=== PATIENT | female | born 1955 | race Caucasian/White ===

== ENCOUNTER 2017-02-22 05:53 | Emergency (ER) | payer OTHER ==
[~2017-02-22] VITALS: Ht 160 cm; Wt 58.1 kg
[2017-02-22] MEDS ORDERED: CALCIUM500 MG PO (06:06)
[2017-02-22] MEDS ORDERED: IRON325 M1 PO (06:06)
[2017-02-22] MEDS ORDERED: PAROXETINE HCL20 MG PO (06:06)
[2017-02-22] MEDS ORDERED: PENICILLIN V P500 MG PO (06:49)
== END 2017-02-22 07:06 | disposition home or self-care (01) ==
LOC: ED 05:53
DX: S02.5XXA Fracture of tooth (traumatic), initial encounter for closed fracture (principal); S01.511A Laceration without foreign body of lip, initial encounter; S16.1XXA Strain of muscle, fascia and tendon at neck level, initial encounter; S00.31XA Abrasion of nose, initial encounter; F32.9 Major depressive disorder, single episode, unspecified; Z79.01 Long term (current) use of anticoagulants; Z79.899 Other long term (current) drug therapy; W18.09XA Striking against other object with subsequent fall, initial encounter
CPT/HCPCS: 72040; 99283

== ENCOUNTER 2018-04-18 12:57 | Emergency (ER) | payer OTHER ==
[~2018-04-18] VITALS: Ht 160 cm; Wt 58.1 kg
[~2018-04-18 12:57] MED LIST: CALCIUM500 MG PO; IRON325 M1 PO; PAROXETINE HCL20 MG PO; PENICILLIN V P500 MG PO
--- OUTSIDE RECORDS SUMMARY | 2018-04-18 14:41 | XMS | Clinical Summary ---
Demographics + + + | Address | [address] | | | [place] [address] | + + + | Home Phone | | + + + | Preferred Language | Unknown | + + + | Marital Status | | + + + | Zoroastrianism Affiliation | 1027 | + + + | Race | Unknown | + + + | Ethnic Group | Unknown | + + + Author + + + | Author | [facility] | | | and [place] | + + + | Organization | [facility] | | | and [place] | + + + | Address | Unknown | + + + | Phone | Unavailable | + + + Support + + + + + | Name | Relationship | Address | Phone | + + + + + | Jony Andrew | ECON | [address] | | | | | [place] | | | | | [phone] | | + + + + + Care Team Providers + +------+ + | Care Cryogenics Repairer Name | Role | Phone | + +------+ + | Deonte Schafer DO | PP | | + +------+ + Allergies + + + + + + | Active Allergy | Reactions | Severity | Noted | Comments | | | | | Date | | + + + + + + | Diphenhydramine | Itching, Nausea And | | 05/20 | Itching | | | Vomiting | | 16 | | + + + + + + Current Medications + + +-------+---------+------+------+-------+ | Prescription | Sig. | Disp. | Refills | Star | End | Statu | | | | | | t | Date | s | | | | | | Date | | | + + +-------+---------+------+------+-------+ | PARoxetine (PAXIL) | Take 10 mg by mouth | | | | | Activ | | 10 mg tablet | every morning. | | | | | e | + + +-------+---------+------+------+-------+ | progesterone | Take 100 mg by mouth | | | | | Activ | | (PROMETRIUM) 100 mg | Daily. | | | | | e | | capsule | | | | | | | + + +-------+---------+------+------+-------+ | estradiol | Take 0.5 mg by mouth | | | | | Activ | | (ESTRACE) 0.5 mg | Daily. | | | | | e | | tablet | | | | | | | + + +-------+---------+------+------+-------+ | FERROUS | Take by mouth | | | | | Activ | | SULFATE-VITAMIN C PO | Daily. | | | | | e | + + +-------+---------+------+------+-------+ | CALCIUM-VITAMIN D | Take by mouth. | | | | | Activ | | PO | | | | | | e | + + +-------+---------+------+------+-------+ | Multiple Vitamin | Take by mouth. | | | | | Activ | | (THERAGRAN PO) | | | | | | e | + + +-------+---------+------+------+-------+ | UNABLE TO FIND | 4 g Daily. Med Name: | | | | | Activ | | | Tia; has | | | | | e | | | protein, | | | | | | | | magnesium,and | | | | | | | | potassium | | | | | | + + +-------+---------+------+------+-------+ Active Problems + + + | Problem | Noted Date | + + + | Spondylolisthesis, lumbar region | 11/05/2015 | + + + | Lumbar spinal stenosis | 11/05/2015 | + + + | Lumbar radiculopathy | 11/05/2015 | + + + | Low back pain | 11/05/2015 | + + + | Sciatica | | + + + | Trochanteric bursitis, left hip | | + + + | Patellar tendonitis | | + + + | Prepatellar bursitis | | + + + | Scoliosis of lumbar spine | | + + + | Nonallopathic lesion of cervical region | | + + + | Nonallopathic lesion of thoracic region | | + + + | Concussion | | + + + | Thoracic back sprain | | + + + | Neck sprain | | + + + | Iliofemoral (ligament) sprain | | + + + | Rotator cuff sprain | | + + + | Headache | | + + + Family History + + +------+ + | Medical History | Relation | Name | Comments | + + +------+ + | Alcohol abuse | Brother | | | + + +------+ + | Arthritis | Brother | | | + + +------+ + | Cancer | Brother | | | + + +------+ + | Hypertension | Brother | | | + + +------+ + | Allergies | Daughter | | | + + +------+ + | Obesity | Daughter | | | + + +------+ + | Arthritis | Father | | | + + +------+ + | Heart attack | Father | | | + + +------+ + | Heart disease | Father | | CHRONIC ISCHEMIC | + + +------+ + | Ulcer Disease | Father | | | + + +------+ + | Osteoporosis | Maternal | | | | | Aunt | | | + + +------+ + | Heart attack | Maternal | | | | | Grandfath | | | | | er | | | + + +------+ + | Heart disease | Maternal | | | | | Grandfath | | | | | er | | | + + +------+ + | Diabetes | Maternal | | | | | Grandmoth | | | | | er | | | + + +------+ + | Obesity | Maternal | | | | | Grandmoth | | | | | er | | | + + +------+ + | Stroke | Maternal | | | | | Grandmoth | | | | | er | | | + + +------+ + | Kidney disease | Mother | | removal | + + +------+ + | Other (see comment) | Mother | | bowel blockage | + + +------+ + | Diabetes | Paternal | | | | | Aunt | | | + + +------+ + | Alcohol abuse | Paternal | | | | | Uncle | | | + + +------+ + | Cancer | Sister | | | + + +------+ + | Diabetes | Sister | | | + + +------+ + | Obesity | Sister | | | + + +------+ + + +------+ + + | Relation | Name | Status | Comments | + +------+ + + | Brother | | | | | | | (Age | | | | | 50) | | + +------+ + + | Brother | | | | + +------+ + + | Child | | Alive | | + +------+ + + | Child | | Alive | | + +------+ + + | Child | | Alive | | + +------+ + + | Daughter | | Alive | | + +------+ + + | Daughter | | | | + +------+ + + | Father | | | | | | | (Age | | | | | 67) | | + +------+ + + | Maternal Aunt | | Alive | | + +------+ + + | Maternal Aunt | | | | + +------+ + + | Maternal Grandfather | | | [place] | | | | (Age | | | | | 56) | | + +------+ + + | Maternal Grandmother | | | STROKE | | | | (Age | | | | | 72) | | + +------+ + + | Mother | | | bowel blockage | | | | (Age | | | | | 49) | | + +------+ + + | Paternal Aunt | | Alive | | + +------+ + + | Paternal Aunt | | | | + +------+ + + | Paternal Grandmother | | | natural causes | | | | (Age | | | | | 83) | | + +------+ + + | Paternal Uncle | | Other | UNKNOWN | + +------+ + + | Paternal Uncle | | | | + +------+ + + | Sister | | | | | | | (Age | | | | | 59) | | + +------+ + + | Sister | | | | + +------+ + + Social History + +-------+ +--------+------+ | Tobacco Use | Types | Packs/Day | Years | Date | | | | | Used | | + +-------+ +--------+------+ | Never Smoker | | | | | + +-------+ +--------+------+ + +---+---+---+ | Smokeless Tobacco: | | | | | Never Used | | | | + +---+---+---+ + + +---------+ + | Alcohol Use | Drinks/We | oz/Week | Comments | | | ek | | | + + +---------+ + | No | 0 | 0.0 | | | | Standard | | | | | drinks or | | | | | | | | | | equivalen | | | | | t | | | + + +---------+ + + + + | Sex Assigned at | Date Recorded | | | | + + + | Not on file | | + + + Last Filed Vital Signs + + + + | Vital Sign | Reading | Time Taken | + + + + | Blood Pressure | 105/62 | 09/29/20161456 PST | + + + + | Pulse | 70 | 09/29/20161456 PST | + + + + | Temperature | 36 C (96.8 F) | 06/26/2016799 PST | + + + + | Respiratory Rate | 18 | 06/26/2016927 PST | + + + + | Oxygen Saturation | 100% | 06/26/2016927 PST | + + + + | Inhaled Oxygen | - | - | | Concentration | | | + + + + | Weight | 58.7 kg (129 lb 6.4 | 09/29/20161456 PST | | | oz) | | + + + + | Height | 167.6 cm (5' 6") | 09/29/20161456 PST | + + + + | Body Mass Index | 20.89 | 09/29/20161456 PST | + + + + Plan of Treatment + + + + + | Health Maintenance | Due Date | Last Done | Comments | + + + + + | Hepatitis C | | | | | Screening | 6 | | | + + + + + | Vaccine: | | | | | Dtap/Tdap/Td (1 - | 5 | | | | Tdap) | | | | + + + + + | Cervical Cancer | | | | | Screening (Pap) | 6 | | | + + + + + | BREAST CANCER | | | | | SCREENING (MAMM Q2 | 6 | | | | YEARS 50-74) | | | | + + + + + | Colorectal Cancer | | | | | Screening | 6 | | | | (Colonoscopy) | | | | + + + + + | Vaccine: Zoster (1 | | | | | of 2) | 6 | | | + + + + + | Vaccine: Influenza | | | | | (#1) | 8 | | | + + + + + Implants + +--------+--------+ +--------+--------+--------+ | Implanted | Type | Area | Manufacture | Device | Expira | Model | | | | | r | | tion | / | | | | | | Identi | Date | Serial | | | | | | fier | | / Lot | + +--------+--------+ +--------+--------+--------+ | Bone Chips 15cc - | Bone | Left: | RTI | | 05/06/ | [id number] | | [id number]: Qty: 1 | | Spine | BIOLOGICS | | 2020 | | | on 11/18/2015 by [facility], | | Lumbar | INC - RBIO | | | /[id number] | | Live Bland DO | | | | | | 9-021 | | | | | | | | / | + +--------+--------+ +--------+--------+--------+ | Imp Spn Spcr 26x8mm - | Generi | Left: | MED[employer] - | | 06/11/ | 155342 | | [id number]: Qty: 1 on | c | Spine | MEDT | | 2022 | 8 / | | 11/18/2015 by Live Hamm | | Lumbar | | | | /[id number] | | DO Baldo | | | | | | 502 | + +--------+--------+ +--------+--------+--------+ | Lauro Perc Str Ccm-Pls [id number] | Generi | Left: | MEDTRONIC - | | | 373430 | | - [id number]: Qty: 1 | c | Spine | MEDT | | | 6160 / | | on 11/18/2015 by [facility], | | Lumbar | | | | / | | Live Bland DO | | | | | | | + +--------+--------+ +--------+--------+--------+ | Imp Spn Lauro Str [id number] - | Generi | Left: | SOFAMOR | | | [id number] | | [id number]: Qty: 1 on | c | Spine | DANEK - DIV | | | 6150 / | | 11/18/2015 by Live Hamm | | Lumbar | [employer]TR[employer]IC | | | / | | DO Baldo | | | - SFDK | | | | + +--------+--------+ +--------+--------+--------+ | Cage Peek Xlct4 10d [id number] | Generi | Left: | NUVASIVE - | | | 453853 | | - [id number]: Qty: 1 | c | Spine | NVSV | | | 0 / / | | on 11/18/2015 by [facility], | | Lumbar | | | | | | Live Bland DO | | | | | | | + +--------+--------+ +--------+--------+--------+ | Cage Xl Wide 10deg [id number] - | Generi | Left: | NUVASIVE - | | | 754699 | | [id number]: Qty: 3 on | c | Spine | NVSV | | | 0 / / | | 11/18/2015 by Live Hamm | | Lumbar | | | | | | DO Baldo | | | | | | | + +--------+--------+ +--------+--------+--------+ | Imp Spn Juliet Peek [id number] - | Generi | Anteri | [employer]TR[employer]IC - | | 04/01/ | [id number] | | [id number]: Qty: 1 | c | or: | MEDT | | 2023 | 1 / | | on 06/25/2016 by [facility], | | Spine | | | | /09CM | | Live Bland DO | | Cervic | | | | | | | | al | | | | | + +--------+--------+ +--------+--------+--------+ | Imp Spn Juliet Peek [id number] - | Generi | Anteri | [employer]IC - | | 01/20/ | 873364 | | [id number]: Qty: 1 | c | or: | MEDT | | 2023 | 1 / | | on 06/25/2016 by [facility], | | Spine | | | | /06CC | | Live Bland DO | | Cervic | | | | | | | | al | | | | | + +--------+--------+ +--------+--------+--------+ | Imp Spn Juliet Peek [id number] - | Generi | Anteri | [employer]IC - | | 04/01/ | 665248 | | [id number]: Qty: 1 | c | or: | MEDT | | 2023 | 1 / | | on 06/25/2016 by [facility], | | Spine | | | | /09CM | | Live Bland DO | | Cervic | | | | | | | | al | | | | | + +--------+--------+ +--------+--------+--------+ | Putty Waskish 10cc Dbm - | Graft | Left: | [employer] - | | 07/06/ | [id number] | | [id number]: Qty: 1 | | Spine | MEDT | | 2018 | | | on 11/18/2015 by [facility], | | Lumbar | | | | /[id number] | | Live Bland DO | | | | | | 7-034 | | | | | | | | / | + +--------+--------+ +--------+--------+--------+ | Putty Melody 10cc Dbm - | Graft | Left: | [employer]IC - | | 07/06/ | [id number] | | [id number]: Qty: 1 | | Spine | MEDT | | 2018 | | | on 11/18/2015 by [facility], | | Lumbar | | | | /[id number] | | Live Bland DO | | | | | | 6-014 | | | | | | | | / | + +--------+--------+ +--------+--------+--------+ | Plate Ant [place] Station Cerv | Plate | Anteri | MEDTRONIC - | | | 624340 | | 57.5mm - [id number]: | | or: | MEDT | | | 7 / / | | Qty: 1 on 06/25/2016 by | | Spine | | | | | | Live Hamm DO | | Cervic | | | | | | | | al | | | | | + +--------+--------+ +--------+--------+--------+ | Screw 4.75 Xtb Ricardo Mas | Screw | Left: | MEDTRONIC - | | | 826233 | | 6.5x65 - [id number]: | | Spine | MEDT | | | 73338 | | Qty: 1 on 11/18/2015 by | | Lumbar | | | | / / | | Live Hamm DO | | | | | | | + +--------+--------+ +--------+--------+--------+ | Screw 4.75 Xtb Ricardo Mas | Screw | Left: | MEDTRONIC - | | | 588579 | | 6.5x60 - [id number]: | | Spine | MEDT | | | 74038 | | Qty: 1 on 11/18/2015 by | | Lumbar | | | | / / | | Live Hamm DO | | | | | | | + +--------+--------+ +--------+--------+--------+ | Screw 4.75 Xtb Ricardo Mas | Screw | Left: | MEDTRONIC - | | | 789065 | | 5.5x60 - [id number]: | | Spine | MEDT | | | 07852 | | Qty: 1 on 11/18/2015 by | | Lumbar | | | | / / | | Live Hamm DO | | | | | | | + +--------+--------+ +--------+--------+--------+ | Screw 4.75 Xtb Ricardo Mas | Screw | Left: | MEDTRONIC - | | | 815573 | | 7.5x65 - [id number]: | | Spine | MEDT | | | 76810 | | Qty: 1 on 11/18/2015 by | | Lumbar | | | | / / | | Live Hamm DO | | | | | | | + +--------+--------+ +--------+--------+--------+ | Screw Set Slra Perc Ti 4.75 - | Screw | Left: | [employer]TR[employer]IC - | | | 240071 | | [id number]: Qty: 4 | | Spine | MEDT | | | 0 / / | | on 11/18/2015 by [facility], | | Lumbar | | | | | | Live Bland DO | | | | | | | + +--------+--------+ +--------+--------+--------+ | Screw Cn Mas 5.5x60 Cc - | Screw | Left: | [employer]TR[employer]IC - | | | 869954 | | [id number]: Qty: 6 on | | Spine | MEDT | | | 69158 | | 11/18/2015 by Live Hamm | | Lumbar | | | | / / | Cassia Bland DO | | | | | | | + +--------+--------+ +--------+--------+--------+ | Screw 7.5x50mm Sextant - | Screw | Left: | MEDTRONIC - | | | 501091 | | [id number]: Qty: 1 on | | Spine | MEDT | | | 50655 | | 11/18/2015 by Live Hamm | | Lumbar | | | | / / | | A, DO | | | | | | | + +--------+--------+ +--------+--------+--------+ | Screw Slra Sextant 7.5.55 - | Screw | Left: | [employer]TRONIC - | | | 180571 | | [id number]: Qty: 1 on | | Spine | MEDT | | | 71020 | | 11/18/2015 by Live Hamm | | Lumbar | | | | / / | | A, DO | | | | | | | + +--------+--------+ +--------+--------+--------+ | Set Scrw Ns G5 Brk Off Ti | Screw | Left: | SOFAMOR | | | 672649 | | 4.75 - [id number]: | | Spine | DANEK - DIV | | | 0 / / | | Qty: 8 on 11/18/2015 by | | Lumbar | [employer]TR[employer]IC | | | | | Live Hamm, | | | - SFDK | | | | + +--------+--------+ +--------+--------+--------+ | Screw Slf-Drl V/A 4.0x15mm - | Screw | Anteri | SOFAMOR | | | 752979 | | [id number]: Qty: 6 on | | or: | DANEK - DIV | | | | | 06/25/2016 by Live Hamm | | Spine | MEDTRONIC | | | | | A, DO | | Cervic | - SFDK | | | | | | | al | | | | | + +--------+--------+ +--------+--------+--------+ | Screw Slf-Drl V/A 4.0x16mm - | Screw | Anteri | SOFAMOR | | | 876834 | | [id number]: Qty: 2 on | | or: | DANEK - DIV | | | | | 06/25/2016 by Live Hamm | | Spine | [employer]TRONIC | | | | | A, DO | | Sonjaic | - SFDK | | | | | | | al | | | | | + +--------+--------+ +--------+--------+--------+ | Graft Infuse Bone Kit Xxs - | | Left: | SOFAMOR | | 06/23/ | 658446 | | [id number]: Qty: 1 on | | Spine | DANEK - DIV | | 2015 | 0 / | | 11/18/2015 by Live Hamm | | Lumbar | MEDTRONIC | | | /[id number] | | A, DO | | | - SFDK | | | 47AA7 | + +--------+--------+ +--------+--------+--------+ | Graft Infuse Bone Kit Xs - | | Left: | SOFAMOR | | 06/23/ | 912954 | | [id number]: Qty: 2 on | | Spine | DANEK - DIV | | 2015 | 0 / | | 11/18/2015 by Live Hamm | | Lumbar | MEDTRONIC | | | /[id number] | | Baldo DO | | | - SFDK | | | 47AA5 | + +--------+--------+ +--------+--------+--------+ | Putty Bone Dbm Grftn 0.5cc - | | Anteri | [employer] - | | 02/15/ | [id number] | | [id number]: Qty: 1 | | or: | MEDT | | 2019 | | | on 06/25/2016 by [facility], | | Spine | | | | /[id number] | | Live Bland DO | | Cervic | | | | 7-193 | | | | al | | | | / | + +--------+--------+ +--------+--------+--------+ | Putty Bone Dbm Grftn 0.5cc - | | Anteri | [employer]TRONIC - | | 02/22/ | [id number] | | [id number]: Qty: 1 on | | or: | MEDT | | 2018 | / | | 06/25/2016 by Live Hamm | | Spine | | | | /[id number] | | DO Baldo | | Cervic | | | | 5-075 | | | | al | | | | | + +--------+--------+ +--------+--------+--------+ Results Not on filefrom Last 3 Months Insurance +-------+--------+ +------+ + + | Payer | Benefi | Subscriber | Type | Phone | Address | | | t Plan | ID | | | | | | / | | | | | | | Group | | | | | +-------+--------+ +------+ + + | MODA | MODA | [id number] | PPO | [phone] [address] [address] | | | [place] | | | [phone] | [place] [phone] | | | TY PPO | | | | | +-------+--------+ +------+ + + + +--------+ +--------+ + + | Guarantor Name | Accoun | Relation to | Date | Phone | Billing Address | | | t Type | Patient | of | | | | | | | | | | + +--------+ +--------+ + + | HENRY ANDREW | Person | Self [birth year] | Home: | [address] | | | al/Fam | | [phone] | [place] [address] | | | sola | | [phone] | | + +--------+ +--------+ + +
--- OUTSIDE RECORDS SUMMARY | 2018-04-18 14:41 | XMS | Clinical Summary ---
Demographics + + + | Address | [address] | | | [place] [address] | + + + | Home Phone | | + + + | Preferred Language | Unknown | + + + | Marital Status | | + + + | Yazdanism Affiliation | 1027 | + + + | Race | Unknown | + + + | Ethnic Group | Unknown | + + + Author + + + | Author | [facility] | | | and [place] | + + + | Organization | [facility] | | | and [place] | + + + | Address | Unknown | + + + | Phone | Unavailable | + + + Support + + + + + | Name | Relationship | Address | Phone | + + + + + | Jony Andrew | ECON | [address] | | | | | [place] | | | | | [address] | | + + + + + Care Team Providers + +------+ + | Care Journalism Professor Name | Role | Phone | + [...] + | Maternal Grandfather | | | [place] | | | | (Age | | [...] Left: | RTI | | [birth year]/ | 011579 | | [id number]: Qty: 1 | | Spine | BIOLOGICS | | 2020 | | | on 11/18/2015 by [facility], | | Lumbar | INC - RBIO | | | /[id number] | | Live Bland DO | | | | | | 9-021 | | | | | | | | / | + +--------+--------+ +--------+--------+--------+ | Imp Spn Spcr 26x8mm - | Generi | Left: | [employer] - | | 06/11/ | 988773 | | [id number]: Qty: 1 on | c | Spine | MEDT | | 2022 | 8 / | | 11/18/2015 by Live Hamm | | Lumbar | | | | /[id number] | | DO Baldo | | | | | | 502 | + +--------+--------+ +--------+--------+--------+ | Lauro Perc Str Ccm-Pls 4.77k246 | Generi | Left: | MEDTRONIC - | | | 160263 | | - [id number]: Qty: 1 | c | Spine | MEDT | | | 6160 / | | on 11/18/2015 by [facility], | | Lumbar | | | | / | | Live Bland DO | | | | | | | + +--------+--------+ +--------+--------+--------+ | Imp Spn Lauro Str 4.03c404lo - | Generi | Left: | SOFAMOR | | | 158057 | | [id number]: Qty: 1 on | c | Spine | DANEK - DIV | | | 6150 / | | 11/18/2015 by Live Hamm | | Lumbar | MEDTRONIC | | | / | | DO Baldo | | | - SFDK | | | | + +--------+--------+ +--------+--------+--------+ | Cage Peek Xlct4 10d [id number] | Generi | Left: | NUVASIVE - | | | 758152 | | - [id number]: Qty: 1 | c | Spine | NVSV | | | 0 / / | | on 11/18/2015 by [facility], | | Lumbar | | | | | | Live Bland DO | | | | | | | + +--------+--------+ +--------+--------+--------+ | Cage Xl Wide 10deg [id number] - | Generi | Left: | NUVASIVE - | | | 639142 | | [id number]: Qty: 3 on | c | Spine | NVSV | | | 0 / / | | 11/18/2015 by Live Hamm | | Lumbar | | | | | | DO Baldo | | | | | | | + +--------+--------+ +--------+--------+--------+ | Imp Spn Juliet Peek [id number] - | Generi | Anteri | MEDTRONIC - | | 04/01/ | 394778 | | [id number]: Qty: 1 | c | or: | MEDT | | 2023 | 1 / | | on 06/25/2016 by [facility], | | Spine | | | | /09CM | | Live Bland DO | | Cervic | | | | | | | | al | | | | | + +--------+--------+ +--------+--------+--------+ | Imp Spn Juliet Peek [id number] - | Generi | Anteri | MEDTRONIC - | | 01/20/ | 996033 | | [id number]: Qty: 1 | c | or: | MEDT | | 2023 | 1 / | | on 06/25/2016 by [facility], | | Spine | | | | /06CC | | Live Bland DO | | Cervic | | | | | | | | al | | | | | + +--------+--------+ +--------+--------+--------+ | Imp Spn Juliet Peek [id number] - | Generi | Anteri | MEDTRONIC - | | 04/01/ | 045921 | | [id number]: Qty: 1 | c | or: | MEDT | | 2023 | 1 / | | on 06/25/2016 by [facility], | | Spine | | | | /09CM | | Live Bland DO | | Cervic | | | | | | | | al | | | | | + +--------+--------+ +--------+--------+--------+ | Putty Morrow 10cc Dbm - | Graft | Left: | MEDTRONIC - | | 07/06/ | [id number] | | [id number]: Qty: 1 | | Spine | MEDT [...] | MEDTRONIC - | | 07/06/ | [id number] | | [id number]: Qty: 1 | | Spine | MEDT | | 2018 | | | on 11/18/2015 by [facility], | | Lumbar | | | | /[id number] | | Live Bland DO | | | | | | 6-014 | | | | | | | | / | + +--------+--------+ +--------+--------+--------+ | Plate Ant Daisy Cerv | Plate | Anteri | MEDTRONIC - | | | 355295 | | 57.5mm - [id number]: | | or: | MEDT | | [...] Left: | MEDTRONIC - | | | 571447 | | 6.5x65 - [id number]: | | Spine | MEDT | | | 73910 | | Qty: 1 on 11/18/2015 by | | Lumbar | | | | / / | | Live Hamm DO | | | | | | | + +--------+--------+ +--------+--------+--------+ | Screw 4.75 Xtb Ricardo Mas | Screw | Left: | MEDTRONIC - | | | 087873 | | 6.5x60 - [id number]: | | Spine | MEDT | | | 30802 | | Qty: 1 on 11/18/2015 by | | Lumbar | | | | / / | | Live Hamm DO | | | | | | | + +--------+--------+ +--------+--------+--------+ | Screw 4.75 Xtb Ricardo Mas | Screw | Left: | MEDTRONIC - | | | 868752 | | 5.5x60 - [id number]: | | Spine | MEDT | | | 75488 | | Qty: 1 on 11/18/2015 by | | Lumbar | | | | / / | | Live Hamm DO | | | | | | | + +--------+--------+ +--------+--------+--------+ | Screw 4.75 Xtb Ricardo Mas | Screw | Left: | MEDTRONIC - | | | 204841 | | 7.5x65 - [id number]: | | Spine | MEDT | | | 67670 | | Qty: 1 on 11/18/2015 by | | [facility] | | | | / / | | Live Hamm DO | | | | | | | + +--------+--------+ +--------+--------+--------+ | Screw Set Slra Perc Ti 4.75 - | Screw | Left: | [facility] - | | | [id number] | | [id number]: Qty: 4 | | Spine | MEDT | | | 0 / / | | on 11/18/2015 by Noris, | | [facility] | | | | | | Live Bland DO | | | | | | | + +--------+--------+ +--------+--------+--------+ | Screw Cn Mas 5.5x60 Cc - | Screw | Left: | [facility] - | | | 818206 | | [id number]: Qty: 6 on | | Spine | MEDT | | | 94899 | | 11/18/2015 by Live Hamm | | [facility] | | | | / / | Cassia Bland DO | | | | | | | + +--------+--------+ +--------+--------+--------+ | Screw 7.5x50mm Sextant - | Screw | Left: | [facility] - | | | 832494 | | [id number]: Qty: 1 on | | Spine | MEDT | | | 16858 | | 11/18/2015 by Live Hamm | | [facility] | | | | / / | | A, DO | | | | | | | + +--------+--------+ +--------+--------+--------+ | Screw Slra Sextant 7.5.55 - | Screw | Left: | [facility] - | | | 516585 | | [id number]: Qty: 1 on | | Spine | MEDT | | | 72297 | | 11/18/2015 by Live Hamm | | [facility] | | | | / / | | A, DO | | | | | | | + +--------+--------+ +--------+--------+--------+ | Set Scrw Ns G5 Brk Off Ti | Screw | Left: | [facility] | | | 269936 | | 4.75 - [id number]: | | Spine | DANEK - DIV | | | 0 / / | | Qty: 8 on 11/18/2015 by | | [facility] | [facility] | | | | | Live Hamm, | | | - SFDK | | | | + +--------+--------+ +--------+--------+--------+ | Screw Slf-Drl V/A 4.0x15mm - | Screw | Anteri | SO[facility]OR | | | [id number] | | [id number]: Qty: 6 on | | or: | [...] | Anteri | SO[facility]OR | | | 840696 | | [id number]: Qty: 2 on | | or: | [...] Left: | SO[facility]OR | | 06/23/ | 051400 | | [id number]: Qty: 1 on | | Spine | [...] Left: | [facility] | | 06/23/ | 515095 | | [id number]: Qty: 2 on | | Spine | DANEK - DIV | | 2015 | 0 / | | 11/18/2015 by Live Hmam | | Lumbar | [facility] | | | /[id number] | | Baldo DO | | | - SFDK | | | 47AA5 | + +--------+--------+ +--------+--------+--------+ | Putty Bone Dbm Grftn 0.5cc - | | Anteri | [facility] - | | 02/15/ | [id number] | | [id number]: Qty: 1 | | or: | MEDT [...] | [employer] - | | 02/22/ | [id number] | | [id number]: Qty: 1 on | | or: | [...] + + | MODA | MODA | [id number] | PPO | [phone] [address] [phone] | | | [place]FFINI | | | [phone] | [place] [phone] | | | TY PPO | | [...] | [phone] | [phone] | [place] [phone] | | | sola | | | [phone] | | + +--------+ +--------+ + +
[2018-04-18] MEDS ORDERED: ZOFRAN ODT4 MG PO (16:39)
[2018-04-18] MEDS ORDERED: NORCO 5-325 TA1 EACH PO (16:39)
== END 2018-04-18 16:57 | disposition home or self-care (01) ==
LOC: ED 12:57
DX: R42 Dizziness and giddiness (principal); R51 Headache; F32.9 Major depressive disorder, single episode, unspecified; Z79.899 Other long term (current) drug therapy
CPT/HCPCS: 70450; 70551; 80053; 85025; 96374; 96375; 99284; J1170; J2405